=== PATIENT | female | born 1985 | race African-American/Black ===

== ENCOUNTER 2016-07-28 23:41 | Emergency (ER) | payer MEDICAID ==
[~2016-07-28] VITALS: Ht 172.7 cm; Wt 68.0 kg
[~2016-07-28 23:41] MED LIST: HYDR500T13
[2016-07-29] MEDS ORDERED: IBUPROFEN 800 MG TAB PO ONE ×2 (00:10→06:00)
[2016-07-29 09:35] VITALS: BP 109/55
== END 2016-07-29 10:13 | disposition home or self-care (01) ==
LOC: ER 23:44
DX: T23.031A Burn of unspecified degree of multiple right fingers (nail), not including thumb, initial encounter (principal); W86.8XXA Exposure to other electric current, initial encounter; Y93.89 Activity, other specified; Y99.8 Other external cause status; Y92.89 Other specified places as the place of occurrence of the external cause
CPT/HCPCS: 73130; 93005